=== PATIENT | female | born 1955 | race Two or more races ===

== ENCOUNTER 2017-09-27 01:36 | Emergency (ER) | payer MEDICAID ==
[~2017-09-27] VITALS: Ht 147.3 cm; Wt 45.4 kg
[2017-09-27] MEDS ORDERED: Morphine Sulfate 4mg/ml Inj IM ONE (02:00)
[2017-09-27] MEDS ORDERED: NORCO 5-325 TA1 EACH ORAL (03:30)
--- NOTE | 2017-09-27 03:31 | Emergency Room Report ---
History of Present Illness General Chief Complaint: Upper Extremity Injury Source: Patient, EMS Present Illness HPI This is a 62-year-old female who is right-hand dominant. She was drinking alcohol tonight and was intoxicated. She tripped and fell on her outstretched hand. Sustained deformity and pain to the right wrist. Pain is 10 out of 10. Worse with movement. No other injury. Did not pass out. did not hit her head. Allergies: Coded Allergies: No Known Allergies (Unverified , 09/27/17) Patient History Past Medical History: see triage record, old chart reviewed Past Surgical History: other Pertinent Family History: none Social History: Reports: alcohol use Last Menstrual Period: NA Now: No Immunizations: other Reviewed Nursing Documentation: PMH: Agreed, PSxH: Agreed Nursing Documentation-PMH Past Medical History: No Stated History Review of Systems Eye: Denies: eye pain, blurred vision ENT: Denies: ear pain, nose congestion, throat swelling Respiratory: Denies: cough, shortness of breath Cardiovascular: Denies: chest pain, palpitations Gastrointestinal: Denies: abdominal pain, diarrhea, nausea, vomiting Musculoskeletal: Reports: joint pain, joint swelling, Denies: back pain Skin: Denies: rash Neurological: Denies: headache, numbness Endocrine: Denies: increased thirst, increased urine Hematologic/Lymphatic: Denies: easy bruising All Other Systems: negative except mentioned in HPI Physical Exam Vital Signs Date Time Temp Pulse Resp B/P (MAP) Pulse Ox O2 Delivery O2 Flow Rate FiO2 09/27/17 01:28 98.4 84 22 127/87 99 Room Air vitals normal Sp02 EP Interpretation: reviewed, normal General Appearance: well appearing, no apparent distress, alert, other - Intoxicated Head: normocephalic, atraumatic Eyes: bilateral eye PERRL, bilateral eye EOMI ENT: hearing grossly normal, normal pharynx Neck: full range of motion, supple, no meningismus Respiratory: chest non-tender, lungs clear, normal breath sounds Cardiovascular #1: regular rate, rhythm, no murmur Gastrointestinal: normal bowel sounds, non tender, no mass, no organomegaly, no bruit, non-distended Musculoskeletal: back normal, gait/station normal, normal range of motion, other - Dinner fork deformity to right wrist. Sensation normal Neurologic: alert, oriented x3 Psychiatric: mood/affect normal Skin: warm/dry Procedures Splinting Splinting : Consent: Verbal Location: Right wrist Hand-Made Type: plaster Splint: sugar-tong Pre-Proc Neuro Vasc Exam: normal Post-Proc Neuro Vasc Exam: normal Patient Tolerated: Well Complications: None Joint Reduction Joint Reduction : Consent: Verbal Joint Reduction Site: wrist (R) Procedural Sedation: No Reduction Attempts: One Pre-Procedure NV Exam: Yes Post-Procedure NV Exam: Yes Post Joint Reduction Film: joint reduced Patient Tolerated: Well Complications: None Progress I did a hematoma block with 1% lidocaine without epinephrine. 10 mL was injected. With gentle pressure and traction, reduce the fracture. A splint was placed. Post wound check was neurovascular intact. Patient tolerated procedure without a problem. Medical Decision Making Diagnostic Impression: Primary Impression: Wrist fracture, right Qualified Codes: S62.101A - Fracture of unspecified carpal bone, right wrist, initial encounter for closed fracture Additional Impression: Alcohol intoxication ER Course Patient presents with right wrist fracture of the distal radius and ulna. Reduced nicely. No wrestling intact. No compartment syndrome. Patient splinted and will be discharged home. Other X-Ray Diagnostic Results Other X-Ray Diagnostic Results #1: X-Ray ordered: Right wrist x-rays # of Views/Limited Vs Complete: 3 View Indication: Pain EP Interpretation: Yes Interpretation: no dislocation, no soft tissue swelling, other - distal radius and ulna frx. Impression: Other - distal radius and ulna frx. Electronically Signed by: Martínez Mendez MD Other X-Ray Diagnostic Results #2: X-Ray ordered: Right wrist xrays # of Views/Limited Vs Complete: 2 View Indication: Pain EP Interpretation: Yes Interpretation: no dislocation, no soft tissue swelling, other - frx reduced Impression: Other - s/p reduction of frx Electronically Signed by: Martínez Mendez MD Last Vital Signs Date Time Temp Pulse Resp B/P (MAP) Pulse Ox O2 Delivery O2 Flow Rate FiO2 09/27/17 01:28 98.4 84 22 127/87 99 Room Air Status: improved Disposition: HOME, SELF-CARE Condition: Stable Scripts Hydrocodone Bit/Acetaminophen 5-325* (NORCO 5-325*) 1 Each Tablet 1 TAB ORAL Q6H Y for For Pain, #20 TAB 0 Refills Prov: MARTÍNEZ MENDEZ M.D. 09/27/17 Patient Instructions: FRACTURE, Wrist [General] Additional Instructions: Followup your Dr. within 7 days. You will need a referral to an orthopedic Dr. Return if symptom worsen. MARTÍNEZ MENDEZ M.D. Sep 27, 2017 03:31
[2017-09-27 03:35] VITALS: BP 127/87
--- NOTE | 2017-09-27 10:24 | Diagnostic Imaging Report ---
Indication: Fracture, status post reduction Technique: XRAY Wrist 2v R Comparison: 09/27/2017, 02:03 Findings: Overlying cast obscures fine bony and soft tissue detail. Previously described distal radial and ulnar fractures. There may be slight improvement in alignment status post reduction and casting however evaluation is limited without true lateral view. No new fracture is evident. Impression: Distal radial and ulnar fractures with possible slight improved alignment status post reduction and casting however evaluation is limited as there is no true lateral view. No new fractures evident however fine bony detail is obscured by overlying cast.
--- NOTE | 2017-09-27 10:29 | Diagnostic Imaging Report ---
Indication: Trauma Technique: XRAY Wrist Complete R Comparison: None Findings: The bones are demineralized. There are acute, mildly comminuted, mildly displaced and dorsally angulated fractures of the distal radius and ulna. The fracture does not extend to the articular surface of the radius. Lucency extends to the articular surface of the ulna at the base of the ulnar styloid. No additional fractures identified. Carpal bones maintain normal alignment. There is overlying soft tissue swelling. No radiopaque foreign body seen. Impression: Acute fractures of the distal radius and ulna as above.
== END 2017-09-27 03:35 | disposition home or self-care (01) ==
LOC: EDBD 01:36 → EMR 01:45
DX: S52.501A Unspecified fracture of the lower end of right radius, initial encounter for closed fracture (principal); S52.601A Unspecified fracture of lower end of right ulna, initial encounter for closed fracture; W19.XXXA Unspecified fall, initial encounter; Y92.89 Other specified places as the place of occurrence of the external cause; F10.129 Alcohol abuse with intoxication, unspecified
CPT/HCPCS: 25605; 73100; 73110; 96372; 99284; J2270; Z7502; 29125